=== PATIENT | male | born 1945 | race Two or more races ===

== ENCOUNTER 2018-05-29 11:45 | Emergency (ER) | payer OTHER ==
[~2018-05-29] VITALS: Ht 149.9 cm; Wt 79.1 kg
[2018-05-29 12:14] LABS: HEMATOCRIT 38.6 % (38.0-50.0); HEMOGLOBIN 13.1 G/DL (12.5-16.6); MCH 33.5 PG (29.0-34.0); MCHC 33.9 G/DL (30.0-36.0); MCV 98.7 FL (86-99); PLATELET COUNT 205 K/uL (156-360); RBC DIS.WIDTH-CV 13.4 % (11.8-14.6); RBC DIS.WIDTH-SD 48.1 % (39-53); RED BLOOD COUNT 3.91 M/uL (4.00-5.50)
[2018-05-29 12:25] LABS: CHLORIDE 109 mEq/L (99-109); SODIUM 141 mEq/L (136-147)
[2018-05-29 12:27] LABS: GLUCOSE 97 mg/dL (70-99)
[2018-05-29 12:31] LABS: CREATININE 1.2 mg/dL (0.6-1.3); GFR ESTIMATE (CALCULATED) > 59 mL/min/ (58.99-99999)
[2018-05-29 12:32] LABS: UREA NITROGEN (BUN) 16 mg/dL (9-23)
[2018-05-29] MEDS ORDERED: ZITHROMAX Z-PA250 MG PO (13:09)
[2018-05-29] MEDS ORDERED: PREDNISONE20 MG PO (13:09)
[2018-05-29] MEDS ORDERED: VENTOLIN HFA18 GM IH (13:09)
[2018-05-29 13:17] VITALS: BP 181/75
== END 2018-05-29 13:18 | disposition home or self-care (01) ==
LOC: EME 11:45
DX: J44.9 Chronic obstructive pulmonary disease, unspecified (principal); I10 Essential (primary) hypertension; Z87.891 Personal history of nicotine dependence
CPT/HCPCS: 71046; 80048; 85027; 94640; 99281; 99284; J7512